=== PATIENT | female | born 1945 | race African-American/Black ===

== ENCOUNTER 2025-08-29 07:51 | Emergency (ER) | payer MEDICARE ==
[~2025-08-29] VITALS: Ht 170.2 cm; Wt 59.9 kg
[2025-08-29 07:51] VITALS: PULSE 69; RESP 17; TEMP 98.4; O2SAT 100
[2025-08-29 08:27] LABS: BASOPHILS % 1.1 % (0.0-1.0); EOSINOPHILS % 4.3 % (0.0-6.0); LYMPHOCYTES % 33.3 % (18.0-39.1); MONOCYTES % 7.3 % (4.4-11.3); NEUTROPHILS % 54.0 % (38.7-80.0); RED CELL DISTRIBUTION WIDTH 13.7 % (11.7-14.4)
[2025-08-29 08:40] LABS: INR 1.01
[2025-08-29 08:49] LABS: EST GLOMERULAR FILTRATION RATE 47.0 ML/MIN (>=60)
[2025-08-29] MEDS ORDERED: GADOBENATE DIMEGLUMINE 1 ML IV ONE (09:14)
== END 2025-08-29 11:07 | disposition home or self-care (01) ==
LOC: ER 07:56
DX: R51.9 Headache, unspecified (principal); H34.12 Central retinal artery occlusion, left eye; I10 Essential (primary) hypertension; E11.65 Type 2 diabetes mellitus with hyperglycemia; Z85.89 Personal history of malignant neoplasm of other organs and systems
CPT/HCPCS: 36415; 70450; 70553; 80053; 84484; 85025; 85610; 99284; A9577